=== PATIENT | female | born 1955 | race Asian ===

== ENCOUNTER 2016-09-30 08:49 | Outpatient (CLI) | payer OTHER ==
[~2016-09-30 08:49] MED LIST: ACET-689 PO; AMBIEN5 MG PO; BENICAR40 MG PO; CARAFATE1 GM PO; CARV25TA PO; CEFD300C2 PO; CIPRODEX1 ML OT; CLONIDINE0.1 MG PO; DILTIAZEM240 M1 PO; DOCU100C10 PO; ELIQUIS5 MG OR; FERR325T5 PO; FLINTSTONE1 PO; FURO20TA67 PO; HYDROCHLOROT50 MG PO; KLOR-CON 1010 MEQ OR; LABETALOL200 MG OR; LISI10TA11 PO; LOSA50TA PO; MUPI2OIN2 TOP; OMEP40CA PO; ONDA4TAB3 PO; OXYC5TAB24 PO; PACERONE200 MG PO; PANT40TA PO; POLY3350 PO; PREDNISONE5 MG PO; WARFARIN2 MG PO; ZESTRIL40 MG OR
[2016-09-30 09:36] LABS: POTASSIUM 4.1 mmol/L (3.6-5.2)
[2016-09-30 09:48] LABS: PLATELET COUNT 287 K/uL (152-353)
== END 2016-09-30 19:08 | disposition home or self-care (01) ==
LOC: LABW 08:49
PROVIDERS: Family Medicine
DX: N39.0 Urinary tract infection, site not specified (principal); M54.5 Low back pain; I10 Essential (primary) hypertension
CPT/HCPCS: 36415; 80053; 80061; 81000; 83735; 84439; 84443; 85027; 87088

== ENCOUNTER 2016-10-26 09:42 | Outpatient (CLI) | payer OTHER | END 2016-10-26 18:59 | disposition home or self-care (01) | LOC: RAD 09:42 | DX: M25.532 Pain in left wrist (principal); M25.531 Pain in right wrist ==

== ENCOUNTER 2016-12-13 08:30 | Day surgery (SDC) | payer OTHER ==
[~2016-12-13] VITALS: Ht 167.6 cm; Wt 72.6 kg
== END 2016-12-13 11:59 | disposition home or self-care (01) ==
LOC: OR 08:30
PROC: 0DBL8ZX Excision of Transverse Colon, Via Natural or Artificial Opening Endoscopic, Diagnostic (ICD-10-PCS; principal; 2016-12-13)
DX: D12.3 Benign neoplasm of transverse colon (principal); Z12.11 Encounter for screening for malignant neoplasm of colon
CPT/HCPCS: J2001; J2704

== ENCOUNTER 2017-01-09 08:24 | Outpatient (CLI) | payer OTHER ==
[2017-01-09 09:09] LABS: PLATELET COUNT 238 K/uL (152-353)
== END 2017-01-09 19:04 | disposition home or self-care (01) ==
LOC: LABW 08:24
PROVIDERS: Internal Medicine
DX: D51.0 Vitamin B12 deficiency anemia due to intrinsic factor deficiency (principal)
CPT/HCPCS: 36415; 85027

== ENCOUNTER 2017-02-16 12:26 | Outpatient (CLI) | payer OTHER | END 2017-02-16 19:41 | disposition home or self-care (01) | LOC: RAD 12:26 | DX: M31.1 Thrombotic microangiopathy (principal); R76.0 Raised antibody titer ==

== ENCOUNTER 2017-03-28 08:40 | Outpatient (CLI) | payer OTHER | END 2017-03-28 09:40 | disposition home or self-care (01) | LOC: MAMMO 08:40 | DX: Z12.31 Encounter for screening mammogram for malignant neoplasm of breast (principal) | CPT/HCPCS: G0202-TC ==

== ENCOUNTER 2017-04-12 07:57 | Outpatient (CLI) | payer OTHER ==
[2017-04-12 09:00] LABS: PLATELET COUNT 300 K/uL (152-353)
[2017-04-12 09:09] LABS: POTASSIUM 3.9 mmol/L (3.6-5.2)
== END 2017-04-12 09:00 | disposition home or self-care (01) ==
LOC: LABW 07:57
PROVIDERS: Internal Medicine
DX: Z00.00 Encounter for general adult medical examination without abnormal findings (principal); I10 Essential (primary) hypertension; D51.0 Vitamin B12 deficiency anemia due to intrinsic factor deficiency; Z79.899 Other long term (current) drug therapy; Z51.81 Encounter for therapeutic drug level monitoring
CPT/HCPCS: 36415; 80053; 80061; 81000; 84439; 84443; 85027

== ENCOUNTER 2017-08-31 10:16 | Emergency (ER) | payer OTHER ==
[~2017-08-31] VITALS: Ht 165.1 cm; Wt 99.8 kg
[2017-08-31 10:30] VITALS: TEMP 98.1
[2017-08-31 12:53] LABS: PLATELET COUNT 298 K/uL (152-353)
[2017-08-31 13:26] VITALS: BP 163/103
== END 2017-08-31 13:45 | disposition home or self-care (01) ==
LOC: ED 10:16
DX: S01.01XA Laceration without foreign body of scalp, initial encounter (principal); I10 Essential (primary) hypertension; W10.8XXA Fall (on) (from) other stairs and steps, initial encounter; Y92.098 Other place in other non-institutional residence as the place of occurrence of the external cause
CPT/HCPCS: 81000; 85027; 85651; 99283

== ENCOUNTER 2017-09-05 09:44 | Outpatient (CLI) | payer OTHER ==
[2017-09-05 10:13] LABS: PLATELET COUNT 289 K/uL (152-353)
[2017-09-05 10:40] LABS: POTASSIUM 4.1 mmol/L (3.6-5.2)
== END 2017-09-05 21:17 | disposition home or self-care (01) ==
LOC: LABW 09:44
PROVIDERS: Internal Medicine Rheumatology
DX: M06.4 Inflammatory polyarthropathy (principal); M31.1 Thrombotic microangiopathy; R76.0 Raised antibody titer
CPT/HCPCS: 36415; 80053; 82164; 84080; 85027; 85651; 86140

== ENCOUNTER 2017-09-20 09:08 | Outpatient (CLI) | payer OTHER | END 2017-09-20 19:55 | disposition home or self-care (01) | LOC: LAB 09:08 | DX: M54.5 Low back pain (principal) | CPT/HCPCS: 81000 ==

== ENCOUNTER 2017-10-23 09:39 | Outpatient (CLI) | payer OTHER | END 2017-10-23 19:36 | disposition home or self-care (01) | LOC: US 09:39 | DX: M79.604 Pain in right leg (principal) ==

== ENCOUNTER 2017-12-18 10:58 | Outpatient (CLI) | payer OTHER | END 2017-12-18 20:05 | disposition home or self-care (01) | LOC: RAD 10:58 | DX: R05 Cough (principal) ==

== ENCOUNTER 2018-01-09 07:46 | Outpatient (CLI) | payer OTHER ==
[2018-01-09 08:27] LABS: PLATELET COUNT 85 K/uL (152-353)
== END 2018-01-09 19:50 | disposition home or self-care (01) ==
LOC: LABW 07:46
PROVIDERS: Internal Medicine
DX: D50.8 Other iron deficiency anemias (principal); D59.3 Hemolytic-uremic syndrome
CPT/HCPCS: 36415; 85027

== ENCOUNTER 2018-03-12 07:30 | Outpatient (CLI) | payer OTHER | END 2018-03-12 20:12 | disposition home or self-care (01) | LOC: RAD 07:30 | DX: Z79.899 Other long term (current) drug therapy (principal); Z51.81 Encounter for therapeutic drug level monitoring ==

== ENCOUNTER 2018-04-02 07:04 | Outpatient (CLI) | payer OTHER ==
[2018-04-02 07:36] LABS: PLATELET COUNT 134 K/uL (152-353)
[2018-04-02 08:08] LABS: POTASSIUM 3.8 mmol/L (3.6-5.2)
== END 2018-04-02 21:57 | disposition home or self-care (01) ==
LOC: LABW 07:04
PROVIDERS: Internal Medicine
DX: Z00.00 Encounter for general adult medical examination without abnormal findings (principal); E55.9 Vitamin D deficiency, unspecified; R79.89 Other specified abnormal findings of blood chemistry; Z79.899 Other long term (current) drug therapy
CPT/HCPCS: 36415; 80053; 80061; 81000; 82306; 84443; 85027

== ENCOUNTER 2018-04-16 07:46 | Outpatient (CLI) | payer OTHER ==
[2018-04-16 08:16] LABS: PLATELET COUNT 156 K/uL (152-353)
[2018-04-16 09:13] LABS: POTASSIUM 4.3 mmol/L (3.6-5.2)
== END 2018-04-16 21:02 | disposition home or self-care (01) ==
LOC: LABW 07:46
DX: D59.3 Hemolytic-uremic syndrome (principal); D50.9 Iron deficiency anemia, unspecified
CPT/HCPCS: 36415; 80053; 82607; 83615; 85027

== ENCOUNTER 2018-07-12 09:29 | Outpatient (CLI) | payer OTHER | END 2018-07-12 20:12 | disposition home or self-care (01) | LOC: RAD 09:29 | DX: J40 Bronchitis, not specified as acute or chronic (principal) ==

== ENCOUNTER 2018-10-23 07:54 | Outpatient (CLI) | payer OTHER ==
[2018-10-23 08:20] LABS: PLATELET COUNT 65 K/uL (152-353)
[2018-10-23 08:41] LABS: POTASSIUM 4.2 mmol/L (3.6-5.2)
== END 2018-10-23 23:10 | disposition home or self-care (01) ==
LOC: LABW 07:54
PROVIDERS: Internal Medicine
DX: I10 Essential (primary) hypertension (principal)
CPT/HCPCS: 36415; 80053; 80061; 81000; 84439; 84443; 85027

== ENCOUNTER 2018-11-29 08:09 | Outpatient (CLI) | payer OTHER ==
[2018-11-29 08:42] LABS: POTASSIUM 4.3 mmol/L (3.6-5.2)
== END 2018-11-29 20:38 | disposition home or self-care (01) ==
LOC: LABW 08:09
PROVIDERS: Internal Medicine
DX: N18.9 Chronic kidney disease, unspecified (principal)
CPT/HCPCS: 36415; 80069; 81000

== ENCOUNTER 2018-12-28 10:00 | Outpatient (CLI) | payer OTHER | END 2018-12-28 22:40 | disposition home or self-care (01) | LOC: RAD 10:00 | DX: M79.661 Pain in right lower leg (principal); M79.89 Other specified soft tissue disorders; D51.0 Vitamin B12 deficiency anemia due to intrinsic factor deficiency; M31.1 Thrombotic microangiopathy ==

== ENCOUNTER 2019-04-17 06:47 | Outpatient (CLI) | payer OTHER ==
[2019-04-17 07:29] LABS: POTASSIUM 3.8 mmol/L (3.6-5.2)
== END 2019-04-17 19:27 | disposition home or self-care (01) ==
LOC: LABW 06:47
PROVIDERS: Internal Medicine
DX: I10 Essential (primary) hypertension (principal)
CPT/HCPCS: 36415; 80053; 80061; 81000; 82306; 84439; 84443

== ENCOUNTER 2019-04-22 12:47 | Outpatient (CLI) | payer OTHER | END 2019-04-22 16:00 | disposition home or self-care (01) | LOC: MAMMO 12:47 | DX: Z12.31 Encounter for screening mammogram for malignant neoplasm of breast (principal) ==

== ENCOUNTER 2019-05-29 09:48 | Outpatient (CLI) | payer OTHER ==
[2019-05-29 11:04] LABS: PLATELET COUNT 356 K/uL (152-353)
[2019-05-29 11:16] LABS: POTASSIUM 4.1 mmol/L (3.6-5.2)
== END 2019-05-29 20:29 | disposition home or self-care (01) ==
LOC: RAD 09:48
PROVIDERS: Nurse Practitioner Family
DX: M25.511 Pain in right shoulder (principal); M25.512 Pain in left shoulder; M25.521 Pain in right elbow; M25.522 Pain in left elbow; M25.561 Pain in right knee; M25.562 Pain in left knee
CPT/HCPCS: 36415; 80053; 82164; 85027; 85651; 86140

== ENCOUNTER 2019-06-07 08:01 | Outpatient (CLI) | payer OTHER | END 2019-06-07 22:01 | disposition home or self-care (01) | LOC: US 08:01 → RAD 08:01 → US 08:30 | DX: Z13.6 Encounter for screening for cardiovascular disorders (principal); Z84.89 Family history of other specified conditions; M54.5 Low back pain ==

== ENCOUNTER 2019-06-10 09:26 | Outpatient (CLI) | payer OTHER ==
[2019-06-10 09:55] LABS: PLATELET COUNT 348 K/uL (152-353)
== END 2019-06-10 22:10 | disposition home or self-care (01) ==
LOC: LABW 09:26
DX: D50.8 Other iron deficiency anemias (principal); D59.3 Hemolytic-uremic syndrome; D51.8 Other vitamin B12 deficiency anemias; M31.1 Thrombotic microangiopathy
CPT/HCPCS: 36415; 85027

== ENCOUNTER 2019-11-25 07:56 | Outpatient (CLI) | payer OTHER ==
[2019-11-25 08:19] LABS: PLATELET COUNT 350 K/uL (152-353)
[2019-11-25 08:38] LABS: POTASSIUM 4.3 mmol/L (3.6-5.2)
== END 2019-11-25 20:47 | disposition home or self-care (01) ==
LOC: LABW 07:56
PROVIDERS: Internal Medicine
DX: D51.0 Vitamin B12 deficiency anemia due to intrinsic factor deficiency (principal); E55.9 Vitamin D deficiency, unspecified; I10 Essential (primary) hypertension
CPT/HCPCS: 36415; 80053; 80061; 81000; 82306; 82607; 84439; 84443; 85027

== ENCOUNTER 2020-04-21 08:39 | Outpatient (CLI) | payer OTHER ==
[~2020-04-21] VITALS: Ht 165.1 cm; Wt 106.1 kg
== END 2020-04-21 19:38 | disposition home or self-care (01) ==
LOC: NM 08:39
DX: I48.0 Paroxysmal atrial fibrillation (principal); I10 Essential (primary) hypertension
CPT/HCPCS: A9500; J2785

== ENCOUNTER 2020-04-27 09:31 | Outpatient (CLI) | payer OTHER | END 2020-04-27 19:12 | disposition home or self-care (01) | LOC: MAMMO 09:31 | DX: Z12.31 Encounter for screening mammogram for malignant neoplasm of breast (principal) ==

== ENCOUNTER 2020-09-14 09:14 | Emergency (ER) | payer OTHER ==
[~2020-09-14] VITALS: Ht 165.1 cm; Wt 106.1 kg
[2020-09-14 11:17] VITALS: BP 150/90; TEMP 98.7
== END 2020-09-14 11:17 | disposition home or self-care (01) ==
LOC: ED 09:14
DX: J20.9 Acute bronchitis, unspecified (principal); Z20.828 Contact with and (suspected) exposure to other viral communicable diseases
CPT/HCPCS: 87502; 87635; 99283; U0003

== ENCOUNTER 2020-10-22 10:47 | Outpatient (CLI) | payer OTHER | END 2020-10-22 21:12 | disposition home or self-care (01) | LOC: US 10:47 | PROVIDERS: ATTEND Nurse Practitioner | DX: M79.604 Pain in right leg (principal) ==

== ENCOUNTER 2021-01-20 15:09 | Outpatient (CLI) | payer OTHER | END 2021-01-20 21:37 | disposition home or self-care (01) | LOC: RAD 15:09 | PROVIDERS: ATTEND Internal Medicine | DX: J40 Bronchitis, not specified as acute or chronic (principal) ==

== ENCOUNTER 2021-04-19 07:14 | Outpatient (CLI) | payer OTHER ==
[2021-04-19 08:43] LABS: POTASSIUM 4.3 mmol/L (3.6-5.2)
[2021-04-19 17:59] LABS: PLATELET COUNT 96 K/uL (152-353)
== END 2021-04-19 19:05 | disposition home or self-care (01) ==
LOC: LABW 07:14
PROVIDERS: ATTEND Internal Medicine
DX: I10 Essential (primary) hypertension (principal); Z13.820 Encounter for screening for osteoporosis
CPT/HCPCS: 36415; 80053; 80061; 81000; 82306; 84439; 84443; 85027

== ENCOUNTER 2021-04-28 10:31 | Outpatient (CLI) | payer OTHER | END 2021-04-28 19:09 | disposition home or self-care (01) | LOC: MAMMO 10:31 | PROVIDERS: ATTEND Internal Medicine | DX: Z12.31 Encounter for screening mammogram for malignant neoplasm of breast (principal); Z13.820 Encounter for screening for osteoporosis; R60.0 Localized edema ==

== ENCOUNTER 2021-05-10 06:52 | Outpatient (CLI) | payer OTHER ==
[2021-05-10 07:02] LABS: PLATELET COUNT 236 K/uL (152-353)
== END 2021-05-10 18:55 | disposition home or self-care (01) ==
LOC: LAB 06:52
PROVIDERS: ATTEND Internal Medicine
DX: M31.1 Thrombotic microangiopathy (principal)
CPT/HCPCS: 36415; 85027

== ENCOUNTER 2021-05-27 08:00 | Outpatient (CLI) | payer OTHER | END 2021-05-27 19:06 | disposition home or self-care (01) | LOC: US 08:00 | PROVIDERS: ATTEND Podiatrist | DX: M79.604 Pain in right leg (principal) ==

== ENCOUNTER 2021-06-07 06:51 | Outpatient (CLI) | payer OTHER ==
[2021-06-07 07:02] LABS: PLATELET COUNT 325 K/uL (152-353)
== END 2021-06-07 21:04 | disposition home or self-care (01) ==
LOC: LABW 06:51
PROVIDERS: ATTEND Internal Medicine
DX: M31.10 Thrombotic microangiopathy, unspecified (principal)
CPT/HCPCS: 36415; 85027

== ENCOUNTER 2021-07-05 09:09 | Emergency (ER) | payer OTHER ==
[~2021-07-05] VITALS: Ht 165.1 cm; Wt 106.1 kg
[2021-07-05 11:02] VITALS: BP 137/79; TEMP 97.6
== END 2021-07-05 11:02 | disposition home or self-care (01) ==
LOC: ED 09:09
DX: M79.662 Pain in left lower leg (principal)
CPT/HCPCS: 99282

== ENCOUNTER 2021-09-29 10:43 | Outpatient (CLI) | payer OTHER ==
[2021-09-29 11:07] LABS: PLATELET COUNT 381 K/uL (152-353)
== END 2021-09-29 18:48 | disposition home or self-care (01) ==
LOC: LABW 10:43
PROVIDERS: ATTEND Internal Medicine Hematology & Oncology
DX: D50.8 Other iron deficiency anemias (principal); D59.3 Hemolytic-uremic syndrome; D51.8 Other vitamin B12 deficiency anemias; M31.10 Thrombotic microangiopathy, unspecified
CPT/HCPCS: 36415; 85027

== ENCOUNTER 2022-05-10 09:38 | Outpatient (CLI) | payer OTHER | END 2022-05-10 18:48 | disposition home or self-care (01) | LOC: MAMMO 09:38 | PROVIDERS: ATTEND Internal Medicine | DX: Z12.31 Encounter for screening mammogram for malignant neoplasm of breast (principal) ==

== ENCOUNTER 2022-05-25 09:10 | Outpatient (CLI) | payer OTHER | END 2022-05-25 19:18 | disposition home or self-care (01) | LOC: RAD 09:10 | PROVIDERS: ATTEND Internal Medicine | DX: J40 Bronchitis, not specified as acute or chronic (principal) ==

== ENCOUNTER 2022-07-09 02:36 | Emergency (ER) | payer OTHER ==
[~2022-07-09] VITALS: Ht 165.1 cm; Wt 106.1 kg
[2022-07-09 02:43] VITALS: TEMP 98.6
[2022-07-09 04:00] VITALS: BP 189/89
== END 2022-07-09 04:00 | disposition home or self-care (01) ==
LOC: ED 02:36
DX: G62.89 Other specified polyneuropathies (principal); E66.8 Other obesity; M31.19 Other thrombotic microangiopathy; I10 Essential (primary) hypertension; M79.604 Pain in right leg
CPT/HCPCS: 96372; 99283; J1885

== ENCOUNTER 2022-09-20 08:11 | Outpatient (CLI) | payer OTHER ==
[2022-09-20 09:09] LABS: POTASSIUM 4.7 mmol/L (3.6-5.2)
== END 2022-09-20 19:13 | disposition home or self-care (01) ==
LOC: LABW 08:11
PROVIDERS: ATTEND Internal Medicine
DX: I10 Essential (primary) hypertension (principal)
CPT/HCPCS: 36415; 80053; 80061; 81002

== ENCOUNTER 2022-09-27 11:32 | Outpatient (CLI) | payer OTHER ==
[2022-09-27 12:10] LABS: PLATELET COUNT 390 K/uL (152-353)
== END 2022-09-27 19:36 | disposition home or self-care (01) ==
LOC: US 11:32
PROVIDERS: ATTEND Internal Medicine
DX: L03.115 Cellulitis of right lower limb (principal)
CPT/HCPCS: 36415; 85027; 85652

== ENCOUNTER 2022-11-23 11:09 | Outpatient (CLI) | payer OTHER | END 2022-11-23 22:59 | disposition home or self-care (01) | LOC: US 11:09 | PROVIDERS: ATTEND Internal Medicine | DX: M79.604 Pain in right leg (principal) ==

== ENCOUNTER 2023-01-17 08:45 | Outpatient (CLI) | payer OTHER ==
[~2023-01-17] VITALS: Ht 165.1 cm; Wt 110.2 kg
== END 2023-01-17 19:57 | disposition home or self-care (01) ==
LOC: NM 08:45
PROVIDERS: ATTEND Nurse Practitioner
DX: I48.0 Paroxysmal atrial fibrillation (principal); R07.89 Other chest pain
CPT/HCPCS: A9500; J2785

== ENCOUNTER 2023-02-23 14:29 | Outpatient (CLI) | payer OTHER ==
[2023-02-23 14:57] LABS: PLATELET COUNT 373 K/uL (152-353)
[2023-02-23 15:30] LABS: POTASSIUM 4.8 mmol/L (3.6-5.2)
== END 2023-02-23 19:02 | disposition home or self-care (01) ==
LOC: LAB 14:29
PROVIDERS: ATTEND Internal Medicine
DX: Z00.00 Encounter for general adult medical examination without abnormal findings (principal); Z13.820 Encounter for screening for osteoporosis; I10 Essential (primary) hypertension; E55.9 Vitamin D deficiency, unspecified
CPT/HCPCS: 80053; 80061; 81002; 82306; 84439; 84443; 85027

== ENCOUNTER 2023-03-13 10:20 | Emergency (ER) | payer OTHER ==
[~2023-03-13] VITALS: Ht 167.6 cm; Wt 108.0 kg
[2023-03-13 11:30] LABS: PLATELET COUNT 382 K/uL (152-353)
[2023-03-13 11:40] LABS: POTASSIUM 4.3 mmol/L (3.6-5.2)
[2023-03-13 11:49] LABS: PARTIAL THROMBOPLASTIN TIME 28.2 SECONDS (23.9-36.7)
[2023-03-13 12:17] VITALS: BP 126/87
== END 2023-03-13 13:10 | disposition home or self-care (01) ==
LOC: ED 10:20
PROVIDERS: Family Medicine
DX: R07.89 Other chest pain (principal)
CPT/HCPCS: 36415; 80053; 82550; 84484; 85027; 85610; 85730; 93005; 99283

== ENCOUNTER 2023-04-10 16:15 | Outpatient (CLI) | payer OTHER | END 2023-04-10 19:00 | disposition home or self-care (01) | LOC: RAD 16:15 | PROVIDERS: ATTEND Internal Medicine | DX: M17.0 Bilateral primary osteoarthritis of knee (principal) ==

== ENCOUNTER 2023-04-29 17:07 | Emergency (ER) | payer OTHER | END 2023-04-29 17:15 | disposition home or self-care (01) | LOC: ED 17:07 | DX: M79.89 Other specified soft tissue disorders (principal); Z53.21 Procedure and treatment not carried out due to patient leaving prior to being seen by health care provider | CPT/HCPCS: 99281 ==

== ENCOUNTER 2023-05-15 09:00 | Outpatient (CLI) | payer OTHER | END 2023-05-15 19:04 | disposition home or self-care (01) | LOC: MAMMO 09:00 | PROVIDERS: ATTEND Internal Medicine | DX: Z12.31 Encounter for screening mammogram for malignant neoplasm of breast (principal); Z13.820 Encounter for screening for osteoporosis; N95.8 Other specified menopausal and perimenopausal disorders ==